=== PATIENT | female | born 1985 | race American Indian/Alaskan Native ===

== ENCOUNTER 2018-01-04 08:35 | Outpatient (CLI) | payer OTHER ==
--- NOTE | 2018-01-04 10:11 | XRay Report ---
BILATERAL HIPS WITH PELVIS, 3 VIEWS: History: Pain. Findings: Bone mineralization is within normal limits. There is no evidence for fracture, dislocation or pelvic diastasis. No advanced joint pathology is detected. The soft tissues are unremarkable. Impression: Unremarkable exam.
== END 2018-01-04 08:36 | disposition home or self-care (01) ==
LOC: XRAY 08:35
PROVIDERS: ATTEND Physical Medicine & Rehabilitation
DX: M25.551 Pain in right hip (principal); M25.552 Pain in left hip
CPT/HCPCS: 73521

== ENCOUNTER 2018-04-04 11:14 | Outpatient (CLI) | payer OTHER ==
--- NOTE | 2018-04-04 14:33 | XRay Report ---
SACROILIAC JOINTS: History: Pain, radiculopathy. PA and both obliques of the SI joints demonstrate a normal joint space with well defined cortical margins. The bones are normally mineralized with no destructive changes or fractures. IMPRESSION: Normal study.
== END 2018-04-04 11:15 | disposition home or self-care (01) ==
LOC: XRAY 11:14
PROVIDERS: ATTEND Physical Medicine & Rehabilitation
DX: M54.16 Radiculopathy, lumbar region (principal); M25.551 Pain in right hip; M25.552 Pain in left hip; M54.5 Low back pain; Z88.5 Allergy status to narcotic agent
CPT/HCPCS: 72202

== ENCOUNTER 2021-10-02 09:29 | Outpatient (CLI) | payer BC ==
--- NOTE | 2021-10-02 11:54 | XRay Report ---
RIGHT ANKLE 2 VIEWS AP AND LATERAL VIEWS BOTH KNEES CERVICAL SPINE 4 VIEWS BILATERAL SHOULDERS 3 VIEWS EACH INDICATION: Bilateral shoulder pain, right ankle pain, neck pain, bilateral knee pain. COMPARISON: No relevant prior imaging study available. FINDINGS: Right ankle: No significant skeletal abnormality. No soft tissue abnormality. Knees: No fracture, dislocation, or joint effusion bilaterally. No degenerative changes. No soft tiss ue abnormality. Cervical spine: Vertebral body height and disc space height is maintained. Alignment is normal. Facet joints are normal. No prevertebral soft tissue swelling. Shoulders: No fracture, dislocation, or arthritic changes bilaterally. Soft tissues are within normal limits. IMPRESSION: 1. No significant abnormality. Signer Name: Adriel Martinez MD Signed: 10/02/2021 11:50 AM Workstation Name: [email or web address]
== END 2021-10-02 09:30 | disposition home or self-care (01) ==
LOC: XRAY 09:29
PROVIDERS: ATTEND Physical Medicine & Rehabilitation
DX: M25.571 Pain in right ankle and joints of right foot (principal); M25.562 Pain in left knee; M25.561 Pain in right knee; M54.2 Cervicalgia; M54.59 Other low back pain
CPT/HCPCS: 72040

== ENCOUNTER 2021-10-13 09:51 | Outpatient (CLI) | payer BC ==
--- NOTE | 2021-10-13 12:10 | Magnetic Resonance Report ---
MRI lumbar spine without contrast INDICATION: Low back pain TECHNIQUE: Axial sagittal images FINDINGS: Alignment appears normal. No marrow replacement process is seen. Conus appears normal. L1-L2: Normal L2-L3: Facet change without significant neuroforaminal narrowing. L3-L4: Facet hypertrophy. No spinal canal narrowing or neuroforaminal narrowing. L4-L5: Facet hypertrophy without spinal canal narrowing or neuroforaminal narrowing. L5-S1: Disc desiccation brevis posterior disc bulge with central disc protrusion and annular tear. Mi ld to moderate bilateral lateral recess narrowing or neuroforaminal narrowing. IMPRESSION: Multilevel discogenic degenerative change most significant at L5-S1. Please see above. Signer Name: Lenny Lemons MD Signed: 10/13/2021 12:05 PM Workstation Name: [id number]
== END 2021-10-13 09:52 | disposition home or self-care (01) ==
LOC: MRI 09:51
PROVIDERS: ATTEND Physical Medicine & Rehabilitation
DX: M51.37 Other intervertebral disc degeneration, lumbosacral region (principal); M47.817 Spondylosis without myelopathy or radiculopathy, lumbosacral region
CPT/HCPCS: 72148

== ENCOUNTER 2022-04-23 09:59 | Outpatient (CLI) | payer BC, MEDICAID ==
--- NOTE | 2022-04-23 12:30 | XRay Report ---
SACROILIAC JOINTS 3 VIEWS INDICATION: M46.1 SACROILITIS NOR ELSEWHERE CLASSIFIED. COMPARISON: None. IMPRESSION: Sacroiliac joints appear symmetric and unremarkable. No evidence for significant joint p athology, effusion or bony erosions. Soft tissues are unremarkable. Signer Name: Santos Fox Jr, MD Signed: 04/23/2022 12:26 PM Workstation Name: [id number]
== END 2022-04-23 10:00 | disposition home or self-care (01) ==
LOC: XRAY 09:59
PROVIDERS: ATTEND Physical Medicine & Rehabilitation
DX: M46.1 Sacroiliitis, not elsewhere classified (principal)
CPT/HCPCS: 72202